=== PATIENT | female | born 1970 | race Caucasian/White ===

== ENCOUNTER 2021-08-15 13:59 | Outpatient (CLI) | payer BC | END 2021-08-15 14:00 | disposition home or self-care (01) | LOC: CSHMAMMO 13:59 | DX: Z12.31 Encounter for screening mammogram for malignant neoplasm of breast (principal); Z91.89 Other specified personal risk factors, not elsewhere classified; Z98.82 Breast implant status | CPT/HCPCS: 77063; 77067 ==

== ENCOUNTER 2021-12-24 12:57 | Outpatient (CLI) | payer BC | END 2021-12-24 12:58 | disposition home or self-care (01) | LOC: CSHULT 12:57 | PROVIDERS: ATTEND Internal Medicine | DX: E04.2 Nontoxic multinodular goiter (principal) | CPT/HCPCS: 76536 ==